=== PATIENT | female | born 1955 | race Caucasian/White ===

== ENCOUNTER → 2019-03-11 | Outpatient (CLI) | payer MEDICARE ==
[~2019-03-11] MED LIST: IOHEXOL 240 MG/ML 50ML VIAL. ONE
[2019-03-11] MEDS: IOHEXOL 240 MG/ML 50ML VIAL. PO ONE (12:49)
[2019-03-11] MEDS: IOHEXOL 300 MG/ML 75 ML VIAL. IV ONE (12:50)
--- NOTE | 2019-03-11 15:23 | RAD ---
EXAM: Abdomen and pelvis CT with intravenous contrast. HISTORY: Elevated lipase and amylase. TECHNIQUE: Computed tomographic images of the abdomen and pelvis were obtained following the administration of 60 cc Omnipaque 300 intravenous contrast. Multiplanar reformatting was performed. *One or more of the following individualized dose reduction techniques were utilized for this examination: 1. Automated exposure control. 2. Adjustment of the mA and/or kV according to patient size. 3. Use of iterative reconstruction technique. COMPARISON: None. FINDINGS: Evaluation of the lower thorax demonstrates a tiny groundglass opacity within the posterior right lower lobe, benign in appearance. There is a 5 mm solid nodule within the lateral left lower lobe. The heart is normal in size. There is a small pericardial effusion. There is hepatic steatosis and mild hepatomegaly. No suspicious hepatic lesion is seen. The gallbladder is unremarkable. There is a prominent downstream pancreatic duct. No obstructing lesion is seen at the level of the ampulla. No focal pancreatic lesion is seen. The spleen is upper normal in size. The adrenal glands are unremarkable. There is a prominent renal collecting system, likely due to the hydration status the patient. No obstructing lesion is seen. There is a small cyst within the mid zone of the left kidney. The uterus is surgically absent. The adnexal regions are unremarkable. There is a large amount of stool within the colon. No small bowel obstruction is seen. There is no lymphadenopathy. There is degenerative change at L4-L5. The right aspect of L5 is sacralized, a normal variant. IMPRESSION: 1. Hepatomegaly and hepatic steatosis. 2. Prominent downstream pancreatic duct, no clear obstructing lesion is seen. ERCP or MRCP may be useful if there is concern for an occult obstructing etiology. There is no convincing acute pancreatitis. 3. Large amount of colonic stool correlate for constipation. 4. 5 mm left lower lobe pulmonary nodule. Follow up according to Fleischner Society criteria. Fleischner Society recommendations (Radiology 2017): SOLID NODULES Solitary solid nodule <6 mm - low-risk patient: no routine follow-up required - high-risk patient: optional CT at 12 months (particularly with suspicious nodule morphology and/or upper lobe location) Solitary solid nodule 6-8 mm - low-risk patient: CT at 6-12 months, then consider CT at 18-24 months - high risk patient: CT at 6-12 months, then if persistent CT at 18-24 months Solitary solid nodule >8 mm - consider CT at 3 months, PET/CT, or tissue sampling Multiple solid nodules <6 mm - low-risk patient: no routine follow-up required - high-risk patient: optional CT at 12 months Multiple solid nodules >6 mm - low-risk patient: CT at 3-6 months, then consider CT at 18-24 months - high risk patient: CT at 3-6 months, then if persistent CT at 18-24 months SUBSOLID NODULES Solitary ground glass nodule <6 mm - no routine follow-up required Solitary ground glass nodule > or = 6 mm - CT at 6-12 months, then if persistent CT every 2 years until 5 years Solitary part solid nodule > or = 6mm - CT at 3-4 months, the if persistent and solid component remains <6 mm, annual CT until 5 years Multiple subsolid nodules <6 mm - CT at 3-6 months, then if stable consider CT at 2 and 4 years in high risk patients Multiple subsolid nodules > or = 6 mm - CT at 3-6 months, then subsequent management based on the most suspicious nodule(s) Electronically signed by: Estefany Millard MD (03/11/2019 3:20 PM) [place] [id number]
== END | disposition home or self-care (01) ==
LOC: CT 11:12
PROVIDERS: ATTEND Registered Nurse
DX: K76.0 Fatty (change of) liver, not elsewhere classified (principal); N28.1 Cyst of kidney, acquired; R16.0 Hepatomegaly, not elsewhere classified; I31.3 Pericardial effusion (noninflammatory); R91.1 Solitary pulmonary nodule; M47.816 Spondylosis without myelopathy or radiculopathy, lumbar region; E11.9 Type 2 diabetes mellitus without complications; Z88.8 Allergy status to other drugs, medicaments and biological substances
CPT/HCPCS: 74177; Q9966; Q9967